=== PATIENT | female | born 1980 | race Caucasian/White ===

== ENCOUNTER 2019-05-29 17:20 | Emergency (ER) | payer MEDICAID ==
[2019-05-29 17:50] VITALS: BP 120/78
--- NOTE | 2019-05-29 19:26 | Emergency Department Report ---
Blank Doc - Documentation Documentation: 39 Y/O FEMALE PRESENTS TO ED C/ OF 2 MONTH HISTORY OF MORNING MIGRAINES, DIZZI NESS, NAUSEA, FLANK PAIN, SPOTTING AND OCCASIONAL SOB. The patient was seen in triage for ABOVE Labs/imaging ordered to evaluate for a cause of this complaint. Vital signs reviewed, patient awake and alert in NAD.
[2019-05-29 19:59] LABS: Basophils # (Auto) 0.1 K/mm3 (0.0-0.1); Basophils % (Auto) 0.6 % (0.0-1.8); Eosinophils # (Auto) 0.1 K/mm3 (0.0-0.4); Eosinophils % (Auto) 1.5 % (0.0-4.3); Hemoglobin 13.9 gm/dl (10.1-14.3); Lymphocytes # (Auto) 2.8 K/mm3 (1.2-5.4); Lymphocytes % (Auto) 29.4 % (13.4-35.0); Mean Corpuscular HGB Conc 33 % (30-34); Mean Corpuscular Volume 88 fl (79-97); Monocytes # (Auto) 0.6 K/mm3 (0.0-0.8); Platelet Count 319 K/mm3 (140-440); Red Blood Count 4.77 M/mm3 (3.65-5.03)
[2019-05-29 20:23] LABS: Alanine Aminotransferase 26 units/L (7-56); Albumin 4.5 g/dL (3.9-5); BUN/Creatinine Ratio 18; Blood Urea Nitrogen 14 mg/dL (7-17); Calcium 9.9 mg/dL (8.4-10.2); Hemolysis Index 37
[2019-05-29 20:41] LABS: HCG Qualitative,Urine Negative (Negative)
[2019-05-29 20:47] LABS: Bacteria,Urine 1+ /HPF (Negative); Bilirubin,Urine NEG (Negative); Blood,Urine SM (Negative); Color,Urine Straw (Yellow); Protein,Urine <15 mg/dL mg/dL (Negative); Urobilinogen,Urine < 2.0 mg/dL (<2.0)
--- NOTE | 2019-05-29 23:32 | Emergency Department Report ---
ED General Adult HPI - General Chief complaint: Medical Clearance Stated complaint: BACK/HIP NUMB/DIZZY/NAUSEA Time Seen by Provider: 05/29/19 19:24 Source: patient Mode of arrival: Ambulatory Limitations: No Limitations - History of Present Illness Initial comments: Patient is a A0 39-year-old [place] with a history of chronic depression and anxiety, bipolar disorder who presents to the ED with complaint of diffuse generalized weakness, intermittent nausea, and mild diffuse abdominal cramps intermittently for the last 2 months, worse and more persistent in the last 1 week. Patient denies fever, chills, cough, chest pain, shortness of breath, diarrhea, vomiting, vaginal bleeding, vaginal discharge, dysuria, syncope or palpitations. MD Complaint: Mild abdominal cramps; generalized weakness, nausea -: Gradual, month(s) (2) Location: head Radiation: non-radiation Severity scale (0 -10): 2 Quality: dull Consistency: intermittent Improves with: none Worsens with: none Associated Symptoms: denies other symptoms, headaches, loss of appetite, malaise. denies: confusion, chest pain, cough, diaphoresis, fever/chills, rash, seizure, shortness of breath, syncope, weakness, other Treatments Prior to Arrival: none - Related Data Home Medications Medication Instructions Recorded Confirmed Last Taken Cyclobenzaprine [Flexeril 10mg] 10 mg PO TID 08/01/14 08/01/14 Unknown Loratadine (Nf) [Claritin] 10 mg PO DAILY 08/01/14 08/01/14 Unknown Ondansetron [Zofran Odt] 4 mg PO Q6H PRN 08/01/14 08/01/14 Unknown SUMAtriptan SUCCINATE [Imitrex] 50 mg PO DAILY PRN 08/01/14 08/01/14 Unknown oxyCODONE /ACETAMINOPHEN [Percocet 1 tab PO Q4H PRN 08/01/14 08/01/14 Unknown 5/325 mg] traZODone [Desyrel] 50 mg PO DAILY 08/01/14 08/01/14 Unknown Previous Rx's Medication Instructions Recorded Last Taken Type Sulfamethoxazole/Trimethoprim 1 each PO BID #10 tablet 08/02/14 Unknown Rx [Bactrim Ds] Allergies Allergy/AdvReac Type Severity Reaction Status Date / Time No Known Allergies Allergy Verified 01/30/15 11:04 ED Review of Systems ROS: Stated complaint: BACK/HIP NUMB/DIZZY/NAUSEA Other details as noted in HPI Constitutional: weakness. denies: chills, fever Eyes: denies: eye pain, eye discharge, vision change ENT: denies: ear pain, throat pain Respiratory: denies: cough, shortness of breath, wheezing Cardiovascular: denies: chest pain, palpitations Endocrine: no symptoms reported Gastrointestinal: other (diffuse intermittent abdominal cramping). denies: abdominal pain, nausea, diarrhea Genitourinary: denies: urgency, dysuria, discharge Musculoskeletal: denies: back pain, joint swelling, arthralgia Skin: denies: rash, lesions Neurological: denies: headache, weakness, paresthesias Psychiatric: denies: anxiety, depression Hematological/Lymphatic: denies: easy bleeding, easy bruising ED Past Medical Hx - Past Medical History Hx Headaches / Migraines: Yes Hx Kidney Stones: Yes Hx Psychiatric Treatment: Yes (DEPRESSION) Additional medical history: ganglion. Cyst - Surgical History Additional Surgical History: BILATERAL EAR SURGERY. - Social History Smoking Status: Never Smoker Substance Use Type: None - Medications Home Medications: Home Medications Medication Instructions Recorded Confirmed Last Taken Type Cyclobenzaprine [Flexeril 10mg] 10 mg PO TID 08/01/14 08/01/14 Unknown History Loratadine (Nf) [Claritin] 10 mg PO DAILY 08/01/14 08/01/14 Unknown History Ondansetron [Zofran Odt] 4 mg PO Q6H PRN 08/01/14 08/01/14 Unknown History SUMAtriptan SUCCINATE [Imitrex] 50 mg PO DAILY PRN 08/01/14 08/01/14 Unknown History oxyCODONE /ACETAMINOPHEN [Percocet 1 tab PO Q4H PRN 08/01/14 08/01/14 Unknown History 5/325 mg] traZODone [Desyrel] 50 mg PO DAILY 08/01/14 08/01/14 Unknown History Sulfamethoxazole/Trimethoprim 1 each PO BID #10 tablet 08/02/14 Unknown Rx [Bactrim Ds] ED Physical Exam - General Limitations: No Limitations General appearance: alert, in no apparent distress - Head Head exam: Present: atraumatic, normocephalic, normal inspection - Eye Eye exam: Present: normal appearance, PERRL, EOMI Pupils: Present: normal accommodation - ENT ENT exam: Present: normal exam, normal orophraynx, mucous membranes moist, TM's normal bilaterally, normal external ear exam - Neck Neck exam: Present: normal inspection, full ROM - Respiratory Respiratory exam: Present: normal lung sounds bilaterally. Absent: respiratory distress, wheezes, rales, chest wall tenderness, accessory muscle use, decreased breath sounds - Cardiovascular Cardiovascular Exam: Present: regular rate, normal rhythm, normal heart sounds. Absent: systolic murmur, diastolic murmur, rubs, gallop - GI/Abdominal GI/Abdominal exam: Present: soft, normal bowel sounds. Absent: tenderness, guarding, rebound, hyperactive bowel sounds, hypoactive bowel sounds, organomegaly - Extremities Exam Extremities exam: Present: normal inspection, full ROM, normal capillary refill - Back Exam Back exam: Present: normal inspection, full ROM. Absent: muscle spasm, vertebral tenderness - Neurological Exam Neurological exam: Present: alert, oriented X3, CN II-XII intact, normal gait, reflexes normal - Psychiatric Psychiatric exam: Present: normal affect, normal mood, anxious - Skin Skin exam: Present: warm, dry, intact, normal color. Absent: rash ED Course Vital Signs 05/29/19 05/29/19 17:45 19:23 Temperature 98.6 F 98.6 F Pulse Rate 85 85 Respiratory 18 18 Rate Blood Pressure 120/78 120/78 O2 Sat by Pulse 95 98 Oximetry ED Medical Decision Making - Lab Data Result diagrams: 05/29/19 19:45 05/29/19 19:45 - Medical Decision Making This is a 39-year-old female who presented to the ED with generalized weakness and flulike symptoms intermittently for 2 months. In the ED, patient is alert and oriented 3 and is not in distress. Lab test results were reviewed and are nonactionable. Patient symptoms are likely viral in etiology. Patient was discharged home and advised to continue taking all her regular medications and to follow-up with her primary care physician in 5-7 days for reevaluation or return to the ED immediately if symptoms get worse. - Differential Diagnosis viral gastroentiritis; URI; GERD; UTI; Critical care attestation.: If time is entered above; I have spent that time in minutes in the direct care of this critically ill patient, excluding procedure time. ED Disposition Clinical Impression: Generalized weakness, Abdominal cramping, Dysmenorrhea Disposition: TO HOME OR SELFCARE Is pt being admited?: No Does the pt Need Aspirin: No Condition: Stable Instructions: Dysmenorrhea (ED), Weakness (ED) Additional Instructions: All your lab test results are unremarkable with no abnormal findings. Take his regular medications as needed for pain, follow-up with your primary care physician in 7-10 days for reevaluation. Return to the ED immediately if symptoms get worse. Referrals: ROSALIND CUTLER MD [Primary Care Provider] - 3-5 Days Time of Disposition: 23:31 Print Language: NORWEGI[place]
== END 2019-05-29 23:50 | disposition home or self-care (01) ==
LOC: ED 17:20
DX: N94.6 Dysmenorrhea, unspecified (principal); R11.0 Nausea; R53.1 Weakness; F32.9 Major depressive disorder, single episode, unspecified; G43.909 Migraine, unspecified, not intractable, without status migrainosus; Z98.890 Other specified postprocedural states; Z79.899 Other long term (current) drug therapy
CPT/HCPCS: 36415; 80053; 81001; 81025; 84702; 85025